=== PATIENT | female | born 1980 | race Caucasian/White ===

== ENCOUNTER 2019-02-24 16:40 | Emergency (ER) | payer OTHER ==
[~2019-02-24] VITALS: Ht 160 cm; Wt 55.3 kg
[~2019-02-24 16:40] MED LIST: CIPRO750 MG; KAOPECTATE262 MG/15 PO; ROBINUL FORTE2 MG; ZOLOFT50 MG
== END 2019-02-24 19:08 | disposition home or self-care (01) ==
LOC: ER 16:40
DX: B34.9 Viral infection, unspecified (principal); A60.00 Herpesviral infection of urogenital system, unspecified

== ENCOUNTER 2021-04-16 16:54 | Emergency (ER) | payer OTHER ==
[~2021-04-16] VITALS: Ht 160 cm; Wt 59.0 kg
== END 2021-04-16 22:34 | disposition home or self-care (01) ==
LOC: ER 16:54
DX: R07.89 Other chest pain (principal); R10.84 Generalized abdominal pain; A05.8 Other specified bacterial foodborne intoxications